=== PATIENT | male | born 1995 | race Caucasian/White ===

== ENCOUNTER 2023-04-21 14:26 | Emergency (ER) | payer SELFPAY ==
[2023-04-21 14:28] VITALS: PULSE 65; RESP 18; TEMP 35.5; O2SAT 99; BMI 28.0
--- NOTE | 2023-04-21 14:44 | EDS_ITS ---
HPI History of Present Illness Chief Complaint: Laceration Informant: patient Associated Symptoms Associated Symptoms: Negative for Parasthesia, Weakness or Loss of Funtion Narrative Narrative: Healthy 27-year-old male who was gloria, the roof was slippery and he slipped, and caught his left hand against a bracket, sustaining a laceration. Last tetanus was about 5 years ago. [id number]. Denies any numbness. Tetanus Immunization: <5 years PFSH PFSH Medical History no medical history no medical history Home Medications cefadroxil 500 mg capsule 500 mg PO BID #14 caps 04/21/23 [Rx Last Taken Unknown] Allergy/AdvReac Type Severity Reaction Status Date / Time No Known Allergies Allergy Verified 04/21/23 14:30 Surgical History no surgical history Social History Smoking Status: Never smoker ROS ROS ED Constitutional Constitutional ED: Denies chills or fever(s) Musculoskeletal Musculoskeletal: Reports extremity pain; Denies neck pain Integumentary Reports wounds; Denies Abrasions or rash Neurologic Neurologic: Denies paresthesias or weakness EXAM Physical Exam Const Vital Signs: 04/21/23 14:28 Temperature 96 F L Temperature Source Temporal Pulse Rate 65 Respiratory Rate 18 Pulse Ox 99 Oxygen Delivery Method Room Air Positive well nourished and well developed General Appearance ED: well developed and NAD Neck full ROM and supple Back/Spine normal ROM and normal to inspection Extremity full ROM Extremity Narrative: Laceration at the base of the thenar eminence of the left hand as well as another laceration in the radial aspect of the palm but not involving the webspace, closer to mid palm. Full range of motion of the thumb including flexion, extension, abduction, opposition. Neuro oriented x3, no focal motor deficits and no sensory deficits noted Sensorium / Orientation: alert Psych mental status grossly normal and thought process normal Skin Skin Narrative: 5cm laceration at the base of the left thenar eminence, in addition to a separate 1.5 cm laceration mid palm. Rashes: no rashes MDM MDM MDM Narrative Medical decision making narrative: No bony tenderness or foreign material do not think he needs an x-ray, the lacerations were anesthetized and repaired see the procedure note, given that the 1 at the base of the thenar eminence got into muscle, I did not see any tendons per se, and he has full range of motion to the thumb I discussed with Dr. Roberts orthopedics for recommendations regarding splinting, he advised that custom orthopedic splint and a little bit of flexion/opposition with regards to the thumb and close a patient follow-up with antibiotics, will write him for [place], he does not need a tetanus update right now, he will follow-up with Ortho in 4 to 5 days. Procedures Lacerations L thenar eminence: Length: 5 cm Depth: Muscle Shape: V-shaped mostly linear Prep: Sterile Conditions and Chlorhexadine Laceration repair: Irrigated, Lidocaine, Local (6cc, plain 1% lido) and Skin sutures Irrigated (ml): 120 Number of Sutures/[place]: 11 Suture Information: Ethilon, Simple and 4-0 L distal palm: Length: 2 cm Depth: Sub Q Shape: Stellate Laceration repair: Irrigated, Lidocaine, Local (plain 1% lido) and Skin sutures Irrigated (ml): 80 Number of Sutures/[place]: 4 Suture Information: Ethilon, Simple and 4-0 Upper Extremity Splints Upper Extremity Splint: Thumb Spica (NVID after placement) Splint Fabrication: Fabricated Location: Left Discharge Plan Triage Chief Complaint: Laceration ED Provider: Rishabh Bernal Dx/Rx/DC Orders Clinical Impression: Laceration of hand, left, complicated Instructions: ED Laceration, Hand: All Closures, ED Splint Care, Fiberglass Prescriptions: New cefadroxil 500 mg capsule 500 mg PO BID Qty: 14 0RF Primary Care Provider: Care Physician,No Primary Referrals: Deangelo Roberts DO [Med Staff - Active Staff] - (4-5 days, call for appt) Care Physician,No Primary [Primary Care Provider] - Disposition Disposition: Home, Self Care Discharge Date/Time: 04/21/23 16:50
== END 2023-04-21 16:50 | disposition home or self-care (01) ==
PROVIDERS: Emergency Provider Emergency Medicine; Visit Provider Emergency Medicine
DX: S61.412A Laceration without foreign body of left hand, initial encounter (principal); W13.2XXA Fall from, out of or through roof, initial encounter; Y93.89 Activity, other specified
CPT/HCPCS: 12002; 29125; 99283